=== PATIENT | male | born 1990 | race Two or more races ===

== ENCOUNTER 2018-07-01 19:46 | Emergency (ER) | payer MEDICAID ==
[~2018-07-01] VITALS: Ht 177.8 cm; Wt 82.0 kg
[2018-07-01] MEDS ORDERED: KETOROLAC 30MG/ML VIAL IV STA (20:25)
[2018-07-01] MEDS ORDERED: CLONAZEPAM 1MG TABLET PO ONE (20:30)
[2018-07-01 21:01] LABS: CHLORIDE 104 mEq/L (98-107)
[2018-07-01 21:04] LABS: BASOPHILS % 0.6 % (0.0-2.0); EOSINOPHILS % 1.3 % (0.0-5.0); HEMATOCRIT. 38.1 % (42.0-52.0); LYMPHOCYTES % 23.5 % (20.0-50.0); MEAN CORPUSCULAR HEMOGLOBIN 30.1 pg (28.0-32.0); MEAN CORPUSCULAR VOLUME 88.1 fL (80.0-94.0); MEAN PLATELET VOLUME 7.1 fl (7.4-10.4); MONOCYTES % 7.2 % (2.0-8.0); NEUTROPHILS % 67.4 % (40.0-76.0); PLATELET 355 x1000/uL (130-400); RED BLOOD CELL COUNT 4.33 mill/uL (4.7-6.1); RED CELL DISTRIBUTION WIDTH 13.5 % (11.6-14.6)
[2018-07-01 23:05] VITALS: BP 117/78
== END 2018-07-01 23:10 | disposition home or self-care (01) ==
LOC: ER 19:46
DX: S09.8XXA Other specified injuries of head, initial encounter (principal); F41.9 Anxiety disorder, unspecified; V03.19XA Pedestrian with other conveyance injured in collision with car, pick-up truck or van in traffic accident, initial encounter; Y93.89 Activity, other specified; Y92.89 Other specified places as the place of occurrence of the external cause; Y99.8 Other external cause status; Z86.73 Personal history of transient ischemic attack (TIA), and cerebral infarction without residual deficits
CPT/HCPCS: 36415; 70450; 71045; 73560; 80053; 84484; 85025; 93005; 96374; 99284; J1885; Z7610